=== PATIENT | male | born 1980 | race Asian ===

== ENCOUNTER 2020-06-16 21:43 | Emergency (ER) | payer OTHER ==
[2020-06-16 22:01] VITALS: BP 152/70
[2020-06-16] MEDS ORDERED: TETANUS/DIPHTHERIA/PERTUSSIS 0.5 ML SYRINGE IM ONE (22:17)
--- NOTE | 2020-06-16 22:19 | ED Physician Documentation ---
History of Present Illness - Stated complaint Stated Complaint: DOG BITE - Chief complaint Chief Complaint: Ext Problem - History obtained from History obtained from: Patient - History of Present Illness Timing: Prior to arrival - Additonal information Additional information: 40-year-old male presents the emergency department for evaluation of a dog bite that occurred this evening when he was running. He reports that at about 7 PM he was running past at home and a dog came from behind and bit him in the left lateral posterior thigh. Though he has a large contusion and abrasion on the skin he reports that the dog did not break the fabric of his running gear. The police were called to the scene. The precinct police sergeant notified the patient that this was the third time this dog had been involved in a bite encounter. Patient reports to me that the world renowned chef and restaurant owner reported rabies as up-to-date. Patient is unsure of his last tetanus status. To come to the emergency department to obtain documentation of the wounds in order to assist with animal control evaluation of the dog Review of Systems Constitutional: reports: Reviewed and negative Eyes: reports: Reviewed and negative Throat: reports: Reviewed and negative Cardiac: reports: Reviewed and negative Respiratory: reports: Reviewed and negative GI: reports: Reviewed and negative Skin: reports: Abrasion (s) Musculoskeletal: reports: Reviewed and negative Neurologic: reports: Reviewed and negative Psychiatric: reports: Reviewed and negative PD PAST MEDICAL HISTORY - Present Medications Home Medications: Ambulatory Orders Medication Instructions Recorded Confirmed Amox/Clav 875/125 [Augmentin] 1 each PO Q12H #20 tablet 06/16/20 Ibuprofen [Motrin] 600 mg PO Q6H PRN #30 tab 06/16/20 PD ED PE NORMAL - General General: Alert and oriented X 3, No acute distress, Well developed/nourished - HEENT HEENT: Atraumatic - Cardiac Cardiac: RRR, No murmur - Derm Derm: Normal color, Warm and dry, Other (abrasions without puncture wound left posterior thigh. Contusion/bruising measuring 3x4 cm) Results - Vitals Vitals: Vital Signs - 24 hr 06/16/20 21:59 Temperature 37.0 C Heart Rate 58 L Respiratory 17 Rate Blood Pressure 152/70 H O2 Saturation 98 Oxygen O2 Source Room air PD MEDICAL DECISION MAKING - ED course Complexity details: reviewed results, re-evaluated patient, considered differential, d/w patient, d/w family ED course: 40-year-old male presents emergency department for evaluation of dog bite wound to the left posterior thigh that occurred this evening when he was running. Reassuringly the animal did not puncture the fabric of his running shorts and the injury is more consistent with an abrasion. There are no obvious puncture wounds. Rabies was reported as up-to-date and the animal. Patient's tetanus was updated today in the emergency department. Because the animal did not break the fabric of his running shorts and there does not seem to be any saliva contact within the abrasion will defer antibiotics unless concerns of infection arise. Will recommend antibiotic ointment to the abrasions ibuprofen for analgesia. As well as a cold compress. Patient will follow-up with his primary care provider emergent return precautions discussed Departure - Departure Disposition: 01 Home, Self Care Clinical Impression: Bite by animal Contusion Qualifiers: Encounter type: initial encounter Contusion area: thigh Laterality: left Qualified Code(s): S70.12XA - Contusion of left thigh, initial encounter Condition: Stable Record reviewed to determine appropriate education?: Yes Prescriptions: Amox/Clav 875/125 [Augmentin] 1 each PO Q12H #20 tablet Ibuprofen [Motrin] 600 mg PO Q6H PRN #30 tab PRN Reason: Pain Comments: Fortunately it does not appear that the dogs mouth or saliva came into contact with your skin. However you have a fairly large abrasion and contusion to the posterior thigh from the dog bite encounter. I do recommend that you apply antibiotic ointment liberally to the abrasion. I also recommend ibuprofen for discomfort and pain. A cool compress to the abrasion should help over the next few days IF at any point you have concerns of infection (increased redness, red streaking, fevers, increased pain or milky drainage), the please fill the rx for the antibiotics as begin taking as prescribed
== END 2020-06-16 22:28 | disposition home or self-care (01) ==
LOC: ED 21:43
DX: S70.372A Other superficial bite of left thigh, initial encounter (principal); W54.0XXA Bitten by dog, initial encounter; Y93.02 Activity, running; Y92.89 Other specified places as the place of occurrence of the external cause
CPT/HCPCS: 90471; 99283

== ENCOUNTER 2021-12-11 09:23 | Outpatient (CLI) | payer OTHER ==
[2021-12-11 13:47] LABS: BASOPHILS % (AUTO) 0.8 %; EOSINOPHILS # (AUTO) 0.1 10^3/uL (0.0-0.7); EOSINOPHILS % (AUTO) 2.6 %; HCT - HEMATOCRIT 41.5 % (42.0-52.0); HGB - HEMOGLOBIN 13.8 g/dL (14.0-18.0); LYMPHOCYTES # (AUTO) 1.4 10^3/uL (1.5-3.5); LYMPHOCYTES % (AUTO) 34.9 %; MEAN CORPUSCULAR HEMOGLOBIN 29.2 pg (27.0-31.0); MEAN CORPUSCULAR HGB CONC 33.3 g/dL (32.0-36.0); MEAN CORPUSCULAR VOLUME 87.7 fL (80.0-94.0); MEAN PLATELET VOLUME 9.6 fL (7.4-11.4); MONOCYTES # (AUTO) 0.4 10^3/uL (0.0-1.0); MONOCYTES % (AUTO) 11.2 %; NEUTROPHILS % (AUTO) 50.2 %; PLT - PLATELET COUNT 242 10^3/uL (130-450); RED BLOOD COUNT 4.73 10^6/uL (4.70-6.10); WHITE BLOOD COUNT 3.9 x10^3/uL (4.8-10.8)
[2021-12-11 13:54] LABS: BILIRUBIN,URINE NEGATIVE (NEGATIVE); GLUCOSE, URINE (UA) NEGATIVE (NEGATIVE); KETONES,URINE (UA) NEGATIVE (NEGATIVE); LEUKOCYTE ESTERASE, URINE NEGATIVE (NEGATIVE); NITRITE,URINE NEGATIVE (NEGATIVE); OCCULT BLOOD,URINE NEGATIVE (NEGATIVE); PH,URINE 6.5 PH (5.0-7.5); PROTEIN,URINE NEGATIVE (NEGATIVE); UROBILINOGEN,URINE 0.2 (NORMAL) E.U./dL (NORMAL)
[2021-12-11 14:03] LABS: ESTIMATED AVERAGE GLUCOSE 111 mg/dL (70-100); HEMOGLOBIN A1c% 5.5 % (4.27-6.07)
[2021-12-11 14:07] LABS: ALBUMIN 4.8 g/dL (3.2-5.5); ALBUMIN/GLOBULIN RATIO 1.7 (1.0-2.2); ALKALINE PHOSPHATASE 73 IU/L (42-121); ALT ALANINE AMINOTRANSFERASE 55 IU/L (10-60); AST ASPARTATE AMINOTRANSFERASE 35 IU/L (10-42); BILIRUBIN,TOTAL 0.8 mg/dL (0.2-1.0); BUN - BLOOD UREA NITROGEN 16 mg/dL (6-20); CALCIUM 9.2 mg/dL (8.5-10.3); CARBON DIOXIDE - CO2 28 mmol/L (21-32); CHLORIDE 102 mmol/L (101-111); CHOL/HDL RATIO 4.3 (<5.0); CHOLESTEROL 226 mg/dL; GFR - MDRD 83 (>89); GLUCOSE 101 mg/dL (70-100); HDL CHOLESTEROL 52 mg/dL; LDL CHOLESTEROL,CALCULATED 162 mg/dL; LDL/HDL RATIO 3.1 (<3.6); POTASSIUM 4.2 mmol/L (3.5-5.0); SODIUM 139 mmol/L (135-145); TOTAL PROTEIN 7.6 g/dL (6.7-8.2); TRIGLYCERIDES 58 mg/dL; VLDL CHOLESTEROL 12 mg/dL
[2021-12-11 14:13] LABS: CLARITY,URINE CLEAR (CLEAR)
[2021-12-11 14:14] LABS: BACTERIA,URINE None Seen /HPF (None Seen); RBC,URINE None Seen /HPF (0-5); SQUAMOUS EPITHELIAL CELL,UR NONE SEEN (<= Few); WBC,URINE 0-3 /HPF (0-3)
[2021-12-11 14:15] LABS: THYROID STIMULATING HORMONE 1.25 uIU/mL (0.34-5.60)
[2021-12-11 23:06] LABS: CHLAMYDIA TRACHOMATIS DNA NEGATIVE (NEGATIVE); NEISSERIA GONORRHOEAE DNA NEGATIVE (NEGATIVE)
== END 2021-12-11 09:24 | disposition home or self-care (01) ==
LOC: LAB.N 09:23
PROVIDERS: ATTEND Nurse Practitioner Family
DX: E66.9 Obesity, unspecified (principal); Z13.220 Encounter for screening for lipoid disorders; N50.82 Scrotal pain; Z13.21 Encounter for screening for nutritional disorder; Z13.1 Encounter for screening for diabetes mellitus
CPT/HCPCS: 36415; 80053; 80061; 81001; 82306; 83036; 83721; 84443; 85025; 87086; 87491; 87591; 87661